=== PATIENT | male | born 1970 | race Two or more races ===

== ENCOUNTER 2018-12-17 07:20 | Outpatient (CLI) | payer OTHER | END 2018-12-17 07:24 | disposition home or self-care (01) | LOC: SONOGRAMA 07:20 | DX: E04.1 Nontoxic single thyroid nodule (principal) ==

== ENCOUNTER 2022-07-31 08:11 | Outpatient (CLI) | payer OTHER | END 2022-07-31 08:15 | disposition home or self-care (01) | LOC: SONOGRAMA 08:11 | PROVIDERS: ATTEND Pathology Anatomic Pathology & Clinical Pathology | DX: D34 Benign neoplasm of thyroid gland (principal); E06.3 Autoimmune thyroiditis; E04.2 Nontoxic multinodular goiter ==